=== PATIENT | male | born 1990 | race Caucasian/White ===

== ENCOUNTER 2018-07-05 10:27 | Emergency (ER) | payer BC, OTHER, SELFPAY | END 2018-07-05 10:53 | disposition home or self-care (01) | LOC: BURERS 10:27 | DX: Z48.817 Encounter for surgical aftercare following surgery on the skin and subcutaneous tissue (principal); J45.909 Unspecified asthma, uncomplicated; F17.210 Nicotine dependence, cigarettes, uncomplicated; Z79.899 Other long term (current) drug therapy | CPT/HCPCS: 99283 ==

== ENCOUNTER 2020-06-16 16:16 | Emergency (ER) | payer SELFPAY | END 2020-06-16 17:11 | disposition home or self-care (01) | LOC: BURERS 16:16 | DX: K02.9 Dental caries, unspecified (principal); F17.210 Nicotine dependence, cigarettes, uncomplicated | CPT/HCPCS: 99281 ==